=== PATIENT | male | born 1945 | race Caucasian/White ===

== ENCOUNTER 2020-11-15 07:41 | Outpatient (CLI) | payer MEDICARE, OTHER | END 2020-11-15 07:42 | disposition home or self-care (01) | LOC: ULT 07:41 | PROVIDERS: ATTEND Internal Medicine | DX: K92.1 Melena (principal); R11.0 Nausea; K30 Functional dyspepsia; K76.89 Other specified diseases of liver | CPT/HCPCS: 93975 ==

== ENCOUNTER 2020-11-28 12:47 | Outpatient (CLI) | payer MEDICARE, OTHER | END 2020-11-28 12:48 | disposition home or self-care (01) | LOC: CT 12:47 | PROVIDERS: ATTEND Internal Medicine | DX: R42 Dizziness and giddiness (principal); R51.9 Headache, unspecified | CPT/HCPCS: 70450 ==

== ENCOUNTER 2021-06-11 12:21 | Outpatient (CLI) | payer MEDICARE, OTHER | END 2021-06-11 12:22 | disposition home or self-care (01) | LOC: ULT 12:21 | PROVIDERS: ATTEND Internal Medicine | DX: R55 Syncope and collapse (principal) | CPT/HCPCS: 93880 ==

== ENCOUNTER 2021-12-02 09:11 | Outpatient (CLI) | payer MEDICARE, OTHER ==
[2021-12-02] MEDS ORDERED: Magnevist 469MG/ML 20 ML VIAL ONE (09:44)
== END 2021-12-02 09:12 | disposition home or self-care (01) ==
LOC: TBSIIMAG 09:11
PROVIDERS: ATTEND Urology
DX: C61 Malignant neoplasm of prostate (principal)
CPT/HCPCS: 72197; A9579

== ENCOUNTER 2022-11-27 05:49 | Day surgery (SDC) | payer MEDICARE, OTHER ==
[2022-11-16 13:53] VITALS: BMI 25.8
[2022-11-27] MEDS ORDERED: fentaNYL PF 100 MCG/2 ML SYRINGE ONE (07:03)
[2022-11-27] MEDS ORDERED: Sodium Chloride 0.9% 100 ML ONE (07:16)
[2022-11-27] MEDS ORDERED: cefTRIAXone (ROCEPHIN) 1 GM VIAL ONE (07:16)
[2022-11-27] MEDS ORDERED: Propofol 500 MG/50 ML VIAL ONE (07:36)
[2022-11-27] MEDS ORDERED: Ondansetron PF 4 MG/2 ML Vial ONE (07:44)
[2022-11-27] MEDS ORDERED: Lidocaine 1% PF 5 ML VIAL ONE (07:44)
== END 2022-11-27 09:13 | disposition home or self-care (01) ==
LOC: SDC 05:49
PROVIDERS: ATTEND Urology
PROC: 0VB03ZX Excision of Prostate, Percutaneous Approach, Diagnostic (ICD-10-PCS; principal; 2022-11-27)
DX: C61 Malignant neoplasm of prostate (principal); Z88.1 Allergy status to other antibiotic agents
CPT/HCPCS: G0416; J0696; J2405; J2704; J3490

== ENCOUNTER 2023-01-04 07:47 | Outpatient (CLI) | payer MEDICARE, OTHER ==
[2023-01-04] MEDS ORDERED: Iopamidol 370 76% 100 ML VIAL ONE (09:39)
== END 2023-01-04 07:48 | disposition home or self-care (01) ==
LOC: NM 07:47
PROVIDERS: ATTEND Radiology Radiation Oncology
DX: C61 Malignant neoplasm of prostate (principal)
CPT/HCPCS: 74177; 78306; 82565; A9503; Q9967

== ENCOUNTER 2023-05-29 14:04 | Observation (INO) | payer MEDICARE, OTHER ==
[~2023-05-29 14:04] MED LIST: Iopamidol-370 76% 500 ML MDV (1 ML CHARGE) ONE
[2023-05-29 14:40] LABS: #Basophils 0.1 thou/uL (0.0-0.2); #Eosinphils 0.2 thou/uL (0.0-0.7); #Monocytes 0.7 thou/uL (0.11-0.59); #Neutrophils 5.5 thou/uL (1.40-6.50); %Basophils 0.9 % (0.0-1.0); %Eosinophils 2.7 % (0.0-10.0); %Lymphocytes 20.4 % (21.0-51.0); %Monocytes 8.1 % (0.0-10.0); %Neutrophils 67.5 % (42.0-75.0); Hematocrit 48.5 % (42.0-52.0); Hemoglobin 16.5 g/dL (14.0-18.0); Mean Corpuscular Hemoglobin 31.7 pg (27.0-31.0); Mean Corpuscular Volume 93.3 fl (78.0-98.0); Mean Platelet Volume 9.7 fL (7.4-10.4); Platelet Count 212 10x3/uL (130-400); RBC Distribution Width 12.5 % (11.5-14.5); White Blood Cell (WBC) Count 8.2 10x3/uL (4.8-10.8)
[2023-05-29 15:11] LABS: Troponin I Less than 0.010 ng/mL (< 0.028)
[2023-05-29] MEDS ORDERED: Aspirin Chewable 81 MG TAB ONE (15:31)
[2023-05-29 15:36] LABS: Prothrombin Time 12.5 sec (12.0-14.7)
[2023-05-29 15:38] LABS: INR-International Normal Ratio 0.9
[2023-05-29 17:04] LABS: Albumin 3.8 g/dL (3.4-4.8)
[2023-05-29 17:05] LABS: Chloride 104 mmol/L (98-107); Potassium 3.6 mmol/L (3.5-5.1); Sodium 139 mmol/L (136-145)
[2023-05-29 17:06] LABS: Glucose 84 mg/dL (83-110)
[2023-05-29 17:07] LABS: Globulin 2.6 g/dL (2.4-3.5); Protein, Total 6.4 g/dL (5.8-8.1)
[2023-05-29 17:08] LABS: Anion Gap 14 mmol/L (10-20); Bilirubin, Total 0.6 mg/dL (0.2-1.2); Carbon Dioxide 25 mmol/L (23-31)
[2023-05-29 17:09] LABS: Alkaline Phosphatase 76 U/L (40-110)
[2023-05-29 17:10] LABS: BUN (Urea Nitrogen) 14 mg/dL (8.4-25.7); Calc. Creatinine Clearance 0 mL/min (70-130); Estimated GFR 89
[2023-05-29 17:11] LABS: AST (SGOT) 20 U/L (5-34)
[2023-05-29 17:12] LABS: ALT (SGPT) 22 U/L (8-55); CK (CPK) 99 U/L (30-200)
[2023-05-29] MEDS ORDERED: Acetaminophen 325 MG TAB PO PRN (17:35)
[2023-05-29] MEDS ORDERED: Acetaminophen 650 MG Suppository PR PRN (17:35)
[2023-05-29 18:37] LABS: Bacteria/HPF None Seen HPF (None Seen); Bilirubin Negative (Negative); Blood, Urine Negative (Negative); CAUTI Indications for Culture Alt mental st,lethar; Clarity Clear (Clear); Glucose, Urine (Dipstick) Normal (Negative); Ketone, Urine Negative (Negative); Leukocyte Negative Leu/uL (Negative); Nitrite Negative (Negative); Protein, Urine (Dipstick) Negative (Neg-Trace); RBC/HPF 0-3 HPF (0-3); Specific Gravity, Urine 1.015 (1.002-1.036); Squamous Epithelial 0-3 HPF (0-3); Urobilinogen Normal mg/dL (Less than 2); WBC/HPF 0-3 HPF (0-3); pH, Urine 7.5 (5.0-9.0)
[2023-05-29] MEDS ORDERED: hydrALAZINE 20 MG/ML VIAL SLOW IVP PRN (18:38)
[2023-05-29 18:39] LABS: Urine Culture Reflex No No
[2023-05-29 18:46] LABS: Amphetamine Not Detected (NotDetected); Barbiturates Screen Not Detected (NotDetected); Benzodiazepine Screen Not Detected (NotDetected); Cocaine Metabolite Screen Not Detected (NotDetected); Methadone Not Detected (NotDetected); Methamphetamine Not Detected (NotDetected); Opiate Screen Not Detected (NotDetected); Oxycodone Screen Not Detected (NotDetected); Phencyclidine (PCP) Not Detected (NotDetected); THC/Cannabinoid Screen Not Detected (NotDetected); Tricyclic Screen Not Detected (NotDetected)
[2023-05-29] MEDS ORDERED: Atorvastatin Calcium 40 MG TAB PO SCH (21:00)
[2023-05-29] MEDS ORDERED: Atorvastatin Calcium 40 MG TAB ONE (22:08)
[2023-05-29] MEDS ORDERED: Famotidine 20 MG TAB ONE (22:08)
[2023-05-29] MEDS: Famotidine 20 MG TAB PO SCH (22:13)
[2023-05-30 04:22] LABS: #Eosinphils 0.3 thou/uL (0.0-0.7); #Monocytes 0.5 thou/uL (0.11-0.59); #Neutrophils 3.6 thou/uL (1.40-6.50); %Basophils 0.7 % (0.0-1.0); %Eosinophils 4.6 % (0.0-10.0); %Lymphocytes 27.4 % (21.0-51.0); %Monocytes 8.4 % (0.0-10.0); %Neutrophils 58.7 % (42.0-75.0); Hematocrit 41.8 % (42.0-52.0); Hemoglobin 14.6 g/dL (14.0-18.0); Mean Corpuscular HGB CONC 34.9 g/dL (32.0-36.0); Mean Corpuscular Hemoglobin 32.6 pg (27.0-31.0); Mean Corpuscular Volume 93.3 fl (78.0-98.0); Mean Platelet Volume 9.7 fL (7.4-10.4); Platelet Count 190 10x3/uL (130-400); RBC Distribution Width 12.4 % (11.5-14.5); Red Blood Cell (RBC) Count 4.48 mill/uL (4.70-6.10); White Blood Cell (WBC) Count 6.1 10x3/uL (4.8-10.8)
[2023-05-30 04:30] LABS: Hemoglobin A1c 5.7 % (4.0-6.0)
[2023-05-30 04:48] LABS: Anion Gap 8 mmol/L (10-20); BUN (Urea Nitrogen) 16 mg/dL (8.4-25.7); Calc. Creatinine Clearance 0 mL/min (70-130); Calcium 8.9 mg/dL (7.8-10.44); Carbon Dioxide 30 mmol/L (23-31); Cardiac Risk 3.3 (Less than 4.5); Chloride 104 mmol/L (98-107); Cholesterol 206 mg/dl (< 200 Desired); Estimated GFR 81; Glucose 91 mg/dL (83-110); HDL Cholesterol 63 mg/dL (>60 Neg Risk); LDL Cholesterol, Calculated 128 mg/dL; Potassium 3.4 mmol/L (3.5-5.1); Sodium 139 mmol/L (136-145); Triglycerides 75 mg/dL (Less than 150)
[2023-05-30] MEDS ORDERED: Aspirin Chewable 81 MG TAB ONE (08:47)
[2023-05-30] MEDS ORDERED: Famotidine 20 MG TAB ONE (08:47)
[2023-05-30] MEDS ORDERED: Aspirin 81 mg Enteric Coated Tablet ONE (08:47)
[2023-05-30 08:53] VITALS: BMI 25.4
[2023-05-30] MEDS: Famotidine 20 MG TAB PO SCH (08:54)
[2023-05-30] MEDS ORDERED: Aspirin 81 mg Enteric Coated Tablet PO SCH (09:00)
[2023-05-30] MEDS ORDERED: Clopidogrel Bisulfate 300 MG TAB PO SCH (14:00)
[2023-05-30 19:47] VITALS: BP 177/108; TEMP 97.9
[2023-05-31] MEDS ORDERED: Clopidogrel Bisulfate 75 MG TAB PO SCH (09:00)
== END 2023-05-30 20:15 | disposition home or self-care (01) ==
LOC: ERS 14:04 → ERHOLD 17:20 → 2SE 05-30 15:00
PROVIDERS: ADMIT Internal Medicine; ATTEND Internal Medicine
DX: R47.01 Aphasia (principal); I16.0 Hypertensive urgency; C61 Malignant neoplasm of prostate; F10.90 Alcohol use, unspecified, uncomplicated; I66.9 Occlusion and stenosis of unspecified cerebral artery; I10 Essential (primary) hypertension; E78.5 Hyperlipidemia, unspecified; Z88.1 Allergy status to other antibiotic agents; Z96.652 Presence of left artificial knee joint; R41.0 Disorientation, unspecified
CPT/HCPCS: 70450; 70496; 70498; 70551; 71045; 80048; 80053; 80061; 80306; 81001; 82550; 82962; 83036; 83735; 84443; 84484; 85025 ×2; 85610; 85730; 93005; 99285; G0378 ×3; 36415; 36416; Q9967

== ENCOUNTER 2025-03-02 21:11 | Emergency (ER) | payer MEDICARE, OTHER ==
[2025-03-02 21:45] LABS: Bacteria/HPF None Seen HPF (None Seen); CAUTI Indications for Culture Dysuria,urgency,freq; Glucose, Urine (Dipstick) Normal (Negative); Leukocyte 25 Leu/uL (Negative); Protein, Urine (Dipstick) 20 mg/dL (Neg-Trace); RBC/HPF 0-3 HPF (0-3); Specific Gravity, Urine 1.015 (1.002-1.036)
[2025-03-02 21:47] LABS: Urine Culture Reflex No No
== END 2025-03-03 00:20 | disposition home or self-care (01) ==
LOC: ERS 21:11
DX: N39.0 Urinary tract infection, site not specified (principal)
CPT/HCPCS: 81001; 99283

== ENCOUNTER 2025-05-01 13:06 | Outpatient (CLI) | payer MEDICARE, OTHER ==
[~2025-05-01 13:06] MED LIST changes: +Iopamidol 370 76% 100 ML VIAL ONE; -Iopamidol-370 76% 500 ML MDV (1 ML CHARGE) ONE
== END 2025-05-01 13:07 | disposition home or self-care (01) ==
LOC: CT 13:06
PROVIDERS: ATTEND Physician Assistant
DX: R31.0 Gross hematuria (principal); N28.1 Cyst of kidney, acquired; K76.89 Other specified diseases of liver; K40.20 Bilateral inguinal hernia, without obstruction or gangrene, not specified as recurrent; K57.30 Diverticulosis of large intestine without perforation or abscess without bleeding
CPT/HCPCS: 74178; Q9967